=== PATIENT | female | born 1990 | race Caucasian/White ===

== ENCOUNTER 2019-07-13 18:20 | Emergency (ER) | payer SELFPAY ==
[~2019-07-13] VITALS: Ht 165.1 cm; Wt 68.2 kg
[~2019-07-13 18:20] MED LIST: AMOX500C2 PO; IBUP-1542 PO; OFLO5DRO7 LEFT EAR; ONDA8TAB14 PO
[2019-07-13 18:36] VITALS: BP 132/76; PULSE 74; RESP 16; Ht 165.1 cm; Wt 68.2 kg
[2019-07-13] MEDS ORDERED: ONDANSETRON (ODT) 4 MG TAB ODT STA (20:04)
[2019-07-13] MEDS ORDERED: IBUPROFEN 600 MG TAB PO ONE (20:30)
[2019-07-13] MEDS ORDERED: ACETAMINOPHEN 325 MG TAB PO ONE (20:30)
== END 2019-07-13 21:10 | disposition home or self-care (01) ==
LOC: FTE 18:20
DX: S13.9XXA Sprain of joints and ligaments of unspecified parts of neck, initial encounter (principal); V89.2XXA Person injured in unspecified motor-vehicle accident, traffic, initial encounter
CPT/HCPCS: 71045; 72040